=== PATIENT | female | born 2000 | race Caucasian/White ===

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

== ENCOUNTER 2020-01-12 20:41 | Emergency (ER) | payer OTHER, SELFPAY ==
[2020-01-12 20:49] VITALS: BP 122/70; PULSE 87; RESP 19; TEMP 36.6; O2SAT 99; BMI 30.6
--- NOTE | 2020-01-12 21:04 | HMH.EDUTC ---
[facility] [place]ression: Encounter to obtain excuse from work Disposition: Home, Self-Care Condition on Discharge: Good Additional Instructions: Make sure to eat prior to going to work *Make sure to wear comfortable clothing and dress appropriate for the weather Return if needed Straight to ER if any life threatening symptoms Referrals: Provider,Referral, MD [Primary Care Provider] - As needed Forms: Work/School Release Time of Disposition: 21:06 Medical Decision Making - Anderson Inquiry Pt receiving controlled substance: No Anderson was queried for this patient: No Vital Signs: 01/12/20 20:49 Temperature 97.8 F Temperature Source Oral Pulse Rate [Right Brachial] 87 Respiratory Rate 19 Blood Pressure [Right Arm] 122/70 Blood Pressure Mean [Right Arm] 87 Blood Pressure Source [Right Arm] Manual Cuff/ Doppler Blood Pressure Position [Right Arm] Sitting 02 Sat by Pulse Oximetry 99 Oxygen Delivery Method Room Air [facility] [place] - General Stated complaint: need release for work Time Seen by Provider: 01/12/20 21:04 Mode of Arrival: Ambulatory Source of Information: Patient Limitations: No Limitations Description of Symptoms (Recalled from Triage Doc. by RN): PT advises she was at work and got hot with her mask on and hadn't ate anything. Advises she needed to be seen before she could go back to work HEENT Symptoms (Recalled from RN notes): No Resp Symptoms (Recalled from RN notes): No Skin Symptoms (Recalled from RN notes): No MS Symptoms (Recalled from RN notes): No Functional Status (Recalled from RN notes): na - History of Present Illness Provider Complaint: Patient states that she was at work the other night and didnt eat prior to going in State that she was having to wear a mask and she got hot while working and felt flush and had to sit down States that work sent her home and after she eat she felt fine States that she tried to go back to work yesterday and they told her she had to be seen by provider prior to returning to work Patient denies any complaints and states that she feels fine - Related Data Previous Rx's Medication Instructions Recorded predniSONE [Deltasone 10mg tablet] 10 mg PO BID 3 Days #6 tab 07/17/19 Amoxicillin [Amoxicillin 500mg Tab] 500 mg PO TID 10 Days #30 tab 07/18/19 Allergies Allergy/AdvReac Type Severity Reaction Status Date / Time venom-honey bee Allergy Verified 12/28/18 13:41 Bee Venom Allergy Unknown Uncoded 12/28/18 13:41 - Worker's Comp Is this a Worker's Comp case?: No [facility] History - Hepatitis A Screen Drug use history?: No High risk sexual behaviors?: No History of sexually transmitted infection?: No Currently employed?: No Childcare worker?: No Do you have indoor plumbing?: Yes Do you have electricity?: Yes Attestation statement:: This patient has been screened for Hepatitis A risk factors. I have reviewed the patient's past medical history: Yes Medical History: Denies:: Cancer, Diabetes Mellitus Type 1, Diabetes Mellitus Type 2, Hypertension, MRSA Other Surgeries: Yes: No Previous Surgery, Other Amputation: No Fractures: No - Social History Smoking Status: Never smoker Alcohol Intake: never Substance Use Type: denies use Occupational Status: student Family Hx:: Coronary Artery Disease, Hypertension, Diabetes, Stroke ROS Obtained: Yes All systems reviewed & no additional complaints, Yes Systems reviewed as appropriate & no additional complaints - Constitutional Constitutional: Reports system reviewed and no additional complaints, except as docu - Eyes Eyes: Reports system reviewed and no additional complaints, except as docu - ENT Ears, Nose, Mouth, and Throat: Reports system reviewed and no additional complaints, except as docu - Cardiovascular Cardiovascular: Reports system reviewed and no additional complaints, except as docu - Respiratory Respiratory: Yes system reviewed and no additional complaints, except as d
[2020-01-12 21:07] VITALS: BP 122/70; PULSE 78; RESP 16; TEMP 36.5; O2SAT 98
== END 2020-01-12 21:09 | disposition home or self-care (01) ==
PROVIDERS: Emergency Provider Nurse Practitioner
DX: Z02.89 Encounter for other administrative examinations (principal)
CPT/HCPCS: 99201

== ENCOUNTER 2020-09-14 09:17 | Emergency (ER) | payer OTHER, SELFPAY ==
[2020-09-14 10:15] VITALS: BP 110/67; PULSE 101; RESP 20; TEMP 36.7; O2SAT 99; BMI 29.0
--- NOTE | 2020-09-14 10:17 | HMH.EDUTC ---
[facility] [place] Clinical Impression: Gastroenteritis, Viral syndrome Disposition: Home, Self-Care Condition on Discharge: Good Instructions: Viral Gastroenteritis, DI for Viral Gastroenteritis -- Adult Additional Instructions: Drink plenty of fluids. Take tylenol or ibuprofen for pain or fever. Take the medications as directed. Follow up with your regular doctor. GO TO THE ER FOR ANY WORSENING SYMPTOMS Prescriptions: Ondansetron [Zofran 4mg ODT] 4 mg PO Q8HP PRN #12 tab.rapdis PRN Reason: Nausea Transmission Status: Received by [facility] #[id number] Referrals: PCP,No [Primary Care Provider] - Time of Disposition: 10:48 Medical Decision Making - Medical Records Medical records reviewed: No: I reviewed the patient's medical records. - Anderson Inquiry Pt receiving controlled substance: No Vital Signs: 09/14/20 10:15 09/14/20 10:44 Temperature 98.0 F 98.0 F Temperature Source Oral Pulse Rate 101 H Pulse Rate [Right Brachial] 101 H Respiratory Rate 20 20 Blood Pressure 110/67 Blood Pressure [Right Arm] 110/67 Blood Pressure Mean [Right Arm] 81 Blood Pressure Source [Right Arm] Automatic Cuff Blood Pressure Position [Right Arm] Sitting 02 Sat by Pulse Oximetry 99 Oxygen Delivery Method Room Air Orders (Tests/Meds): ORDERS Category Date Time Status Covid-19 Nasal PCR ([facility]) Routine Lab 09/14/20 09:40 Received [facility] [place] HPI - General Stated complaint: vomiting, nausea Time Seen by Provider: 09/14/20 10:17 - History of Present Illness Provider Complaint: She states that since last night she has had n/v/d. She has vomited x1. She denies any abdominal pain. - Related Data Previous Rx's Medication Instructions Recorded predniSONE [Deltasone 10mg tablet] 10 mg PO BID 3 Days #6 tab 07/17/19 Amoxicillin [Amoxicillin 500mg Tab] 500 mg PO TID 10 Days #30 tab 07/18/19 Ondansetron [Zofran 4mg ODT] 4 mg PO Q8HP PRN #12 tab.rapdis 09/14/20 Allergies Allergy/AdvReac Type Severity Reaction Status Date / Time venom-honey bee Allergy Verified 12/28/18 13:41 Bee Venom Allergy Unknown Uncoded 12/28/18 13:41 [facility] History - Hepatitis A Screen Attestation statement:: This patient has been screened for Hepatitis A risk factors. I have reviewed the patient's past medical history: Yes Medical History: Denies:: Cancer, Diabetes Mellitus Type 1, Diabetes Mellitus Type 2, Hypertension, MRSA Other Surgeries: Yes: No Previous Surgery, Other Amputation: No Fractures: No - Social History Smoking Status: Never smoker Alcohol Intake: never Substance Use Type: denies use Occupational Status: student Family Hx:: Coronary Artery Disease, Hypertension, Diabetes, Stroke ROS Obtained: Yes All systems reviewed & no additional complaints - Constitutional Constitutional: Reports system reviewed and no additional complaints, except as docu - Eyes Eyes: Reports system reviewed and no additional complaints, except as docu - ENT Ears, Nose, Mouth, and Throat: Reports system reviewed and no additional complaints, except as docu - Cardiovascular Cardiovascular: Reports system reviewed and no additional complaints, except as docu - Respiratory Respiratory: Yes system reviewed and no additional complaints, except as docu - Gastrointestinal Gastrointestingal: Reports: system reviewed and no additional complaints, except as docu Physical Exam - General General appearance: alert, in no apparent distress - Head Head exam: atraumatic, normocephalic, normal inspection - Eye Eye exam: Present: normal appearance, PERRL, EOMI - ENT ENT exam: Present: normal exam, normal oropharynx, mucous membranes moist, TM's normal bilaterally, normal external ear exam - Neck Neck exam: Present: normal inspection, full ROM, trachea midline. Absent: meningismus, lymphadenopathy - Chest Chest inspection: Present: normal inspection, symmetric chest wall rise. Absen
[2020-09-14 10:44] VITALS: BP 110/67; PULSE 101; RESP 20; TEMP 36.7; O2SAT 99
[2020-09-14 19:41] LABS: UTC Influenza A Antigen Negative (Negative)
[2020-09-14 19:42] LABS: UTC Influenza B Antigen Negative (Negative)
== END 2020-09-14 10:45 | disposition home or self-care (01) ==
PROVIDERS: Emergency Provider Nurse Practitioner Family
DX: K52.9 Noninfective gastroenteritis and colitis, unspecified (principal); Z20.822 Contact with and (suspected) exposure to COVID-19
CPT/HCPCS: 87804; 99202; G0463; U0003

== ENCOUNTER 2020-12-22 01:55 | Emergency (ER) | payer OTHER, SELFPAY ==
[2020-12-22 02:08] VITALS: BP 123/60; PULSE 75; RESP 17; TEMP 36.4; O2SAT 100; BMI 28.3
--- NOTE | 2020-12-22 02:16 | ECG_ITS ---
APPROVED REPORT Exam: Resting ECG HR:68 bpm ECG Measurements Heart Rate [address] 126 P 40 QRSd 82 QRS 70 QT 404 T 59 QTc 429 Conclusion Normal sinus rhythm with sinus arrhythmia Normal ECG Electronically signed by : Raza Arias, 12/22/2020 07:40:37
--- NOTE | 2020-12-22 02:16 | HMH.EDGENADL ---
ED Disposition Clinical Impression: GERD (gastroesophageal reflux disease) Qualifiers: Esophagitis presence: without esophagitis Qualified Code(s): K21.9 - Gastro-esophageal reflux disease without esophagitis Disposition: Home, Self-Care Condition on Discharge: Fair Additional Instructions: Please take medications as prescribed Please decrease intake of acidic and citrus foods Please follow-up with your PCP for further management Prescriptions: Omeprazole [Omeprazole 40mg Capsule] 40 mg PO DAILY 14 Days #14 cap Prescription Printed Referrals: Raza Vo MD [Primary Care Provider] - - Critical Care Critical Care Time: No Attestation: On , the high probability of a clinically significant, sudden or life threatening deterioration of the following system(s) required my full and direct attention, intervention and personal management. The time I documented below is in addition to time spent performing reported procedures but includes the following listed in this critical care notation. Medical Decision Making - Medical Records Medical records reviewed: Yes: I reviewed the patient's medical records. - Anderson Inquiry Pt receiving controlled substance: No Vital Signs: 12/22/20 02:08 Temperature 97.5 F L Temperature Source Oral Pulse Rate [Right Brachial] 75 Respiratory Rate 17 Blood Pressure [Right Arm] 123/60 Blood Pressure Mean [Right Arm] 81 Blood Pressure Source [Right Arm] Automatic Cuff Blood Pressure Position [Right Arm] Sitting 02 Sat by Pulse Oximetry 100 Oxygen Delivery Method Room Air Orders (Tests/Meds): ED MEDICATIONS Discontinued Medications Generic Name Dose Route Start Last Admin Trade Name Freq PRN Reason Stop Dose Admin Belladonna Alkaloids 60 ml 12/22/20 02:15 12/22/20 02:38 Gi Cocktail 60ml Udc PO 12/22/20 02:16 60 ml ONCE ONE Administration Ondansetron HCl 4 mg 12/22/20 02:24 12/22/20 02:38 Ondansetron 4mg Odt SL 12/22/20 02:25 4 mg ONCE ONE Administration ORDERS Category Date Time Status Urine , HCG Qual. Stat Lab 12/22/20 02:15 Ordered EKG Request [ECG Request by /Cassidy] Stat Y 12/22/20 02:16 Ordered - ECG Data Tracing #1 ECG initial impression date: 12/22/20 ECG initial impression time: 02:30 ECG normal with no acute: arrhythmias, ischemia, conduction abnormalities, chamber hypertrophy Normal Sinus Rhythm: Yes Medical Decision Narrative: Upon presentation, patient is hemodynamically stable and nontoxic-appearing. Differential diagnosis includes but is not limited to GERD, gastroenteritis, esophageal spasm. Patient symptoms include retrosternal chest pain that are worse at night and with lying flat are consistent with GERD. Patient was given a GI cocktail for symptom management. However given presentation with chest pain and recent diagnosis of MVP, EKG was obtained. I reviewed EKG and did not find any signs of ischemia. Additionally, Urine test was obtained upon reassessment, patient states that she feels better. She was discharged in stable condition. Patient agreeable to plan. General Adult HPI - General Chief complaint: PAIN Stated complaint: difficulty breathing,chest pressure,COY Time Seen by Provider: 12/22/20 02:10 Mode of Arrival: Family Vehicle Limitations: No Limitations Description of Symptoms (Recalled from ER Triage Doc. by RN): pt complains of intermittent chest pain that she isn't she if is related to her recent mitral valve prolapse diagnosis or if its her vaping or marijuana use, but is accompanied by decr in appetite, nausea and hot flashes. is sexually active with LMP 2 weeks [employer]. afebrile. has a headache. slight soa with act of speaking, but no fluctuation in v/s. - History of Present Illness HPI narrative: Patient is a 20-year-old female presenting with hours of retrosternal chest pain that radiates down into her abdomen as well as shortness of breath. Patient states that she
[2020-12-22 02:57] VITALS: BP 112/75; PULSE 73; RESP 18; TEMP 36.9; O2SAT 98
== END 2020-12-22 02:59 | disposition home or self-care (01) ==
PROVIDERS: Emergency Provider Emergency Medicine; PCP Family Medicine
DX: K21.9 Gastro-esophageal reflux disease without esophagitis (principal); R07.9 Chest pain, unspecified; I35.8 Other nonrheumatic aortic valve disorders
CPT/HCPCS: 93005; 99281

== ENCOUNTER 2020-12-23 10:58 | Emergency (ER) | payer OTHER, SELFPAY ==
--- NOTE | 2020-12-23 10:45 | ECG_ITS ---
APPROVED REPORT Exam: Resting ECG HR:57 bpm ECG Measurements Heart Rate 57 AXES MI 114 P 7 QRSd 82 QRS 78 QT 414 T 70 QTc 402 Conclusion Sinus bradycardia Early repolarization Otherwise normal ECG Electronically signed by : Raza Arias, 12/26/2020 14:00:30
[2020-12-23 10:58] VITALS: BP 117/55; PULSE 58; RESP 18; TEMP 36.8; O2SAT 98; BMI 28.3
--- NOTE | 2020-12-23 11:04 | HMH.EDGENADL ---
ED Disposition Clinical Impression: Atypical chest pain, Anxiety Disposition: Home, Self-Care Condition on Discharge: Good Referrals: Raza Vo MD [Primary Care Provider] - 3 days Time of Disposition: 12:17 - Critical Care Critical Care Time: No Attestation: On 12/23/20, the high probability of a clinically significant, sudden or life threatening deterioration of the following system(s) required my full and direct attention, intervention and personal management. The time I documented below is in addition to time spent performing reported procedures but includes the following listed in this critical care notation. Medical Decision Making - Medical Records Medical records reviewed: Yes: I reviewed the patient's medical records. - Anderson Inquiry Pt receiving controlled substance: No Vital Signs: 12/23/20 10:58 Temperature 98.3 F Temperature Source Oral Pulse Rate [Right] 58 L Respiratory Rate 18 Blood Pressure [Right Arm] 117/55 L Blood Pressure Mean [Right Arm] 75 02 Sat by Pulse Oximetry 98 - Lab Data Lab results reviewed: Yes: I reviewed the patient's lab results. Lab Results 12/23/20 11:03: Sodium 139, Potassium 3.6, Chloride 107, Carbon Dioxide 23, Anion Gap 12.6, BUN 10, Creatinine 0.60, Estimated GFR 127, Est GFR ( Amer) 154, Glucose 99, Calcium 9.7, Troponin I < 0.01 Result diagrams: 12/23/20 11:03 Orders (Tests/Meds): ED MEDICATIONS Discontinued Medications Generic Name Dose Route Start Last Admin Trade Name Freq PRN Reason Stop Dose Admin Ondansetron HCl 4 mg 12/23/20 11:48 Ondansetron 4mg/2ml Vial IV 12/23/20 11:49 ONCE ONE ORDERS Category Date Time Status CXR --portable [XR chest portable] Stat Exams 12/23/20 11:06 Taken - Radiology Data #1 Image(s): Chest Image Reviewed: Yes I reviewed the patient's radiology image Preliminary Findings: Normal/NAD - ECG Data Tracing #1 57 bpm, sinus bradycardia, no ST elevation or depression, no ectopy, normal intervals. ECG initial impression date: 12/23/20 ECG initial impression time: 10:50 Medical Decision Narrative: 20yo F reevaluated for chest pain. Patient in no acute distress on initial evaluation. Repeat laboratory studies, EKG, chest x-ray ordered. Patient remains in no acute distress. Labs are again benign. EKG reviewed as above. Discussed anxiety with the patient. She agrees to follow-up with her PCP to discuss starting medications. General Adult HPI - General Stated complaint: CHEST PAIN Time Seen by Provider: 12/23/20 11:04 Mode of Arrival: Ambulatory Source of Information: Patient - History of Present Illness HPI narrative: 20yo F evaluated for chest pain. Patient was recently evaluated in this emergency department for the same complaint. She denies any new symptoms. She does reports that her symptoms continue to bother her. Chest pain does not seem tied to exertion. She denies shortness of breath. She also continues to complain of hot flashes. Patient reports she has been told she has anxiety and was offered medications in the past but declined them secondary to a family history of addiction. Patient denies any radiation of pain, nausea/vomiting, diaphoresis. - Related Data Previous Rx's Medication Instructions Recorded Omeprazole [Omeprazole 40mg 40 mg PO DAILY 14 Days #14 cap 12/22/20 Capsule] Allergies Allergy/AdvReac Type Severity Reaction Status Date / Time venom-honey bee Allergy Verified 12/28/18 13:41 Bee Venom Allergy Unknown Uncoded 12/28/18 13:41 [facility] History - Hepatitis A Screen Drug use history?: No Attestation statement:: This patient has been screened for Hepatitis A risk factors. I have reviewed the patient's past medical history: Yes Medical History: Reports:: Anxiety, Valvular Heart Disease Denies:: Cancer, Diabetes Mellitus Type 1, Diabetes Mellitus Type 2, Hypertension, MRSA Other Surgeries: Yes: No P
--- NOTE | 2020-12-23 11:06 | XR_ITS ---
PROCEDURE: XR CHEST PORTABLE CLINICAL HISTORY: cp Chest pain COMPARISON: CR CXR CHEST(2 VIEWS-NOT PORTABLE) from 07/17/2014 CR CXR2V XR chest 2V from 05/24/2018 CR XR CHEST 2V from 06/14/2019 FINDINGS: The cardiomediastinal silhouette and pulmonary vascularity are within normal limits. The lungs are clear without infiltrates, suspicious nodules, or pleural effusions. No acute bony abnormalities. IMPRESSION: No acute findings. Dictated by: Jarvis Wiggins MD 12/23/2020 12:23 Jarvis Wiggins MD in [place] 12/23/2020 12:23
[2020-12-23 11:28] LABS: Chloride 107 mmol/L (98-107)
[2020-12-23 11:29] LABS: Potassium 3.6 mmoL/L (3.5-5.1); Sodium 139 mmol/L (136-145)
[2020-12-23 11:31] LABS: Blood Urea Nitrogen 10 mg/dl (7-17); Estimated Glomerular Filt Rate 127 ml/min (>60); GFR (African American) 154 ML/MIN (>60)
[2020-12-23 11:32] LABS: Anion Gap 12.6 mEq/L (5-15); Calcium 9.7 mg/dl (8.4-10.2); Carbon Dioxide 23 mmol/L (22.0-30.0); Glucose 99 mg/dl (74-100)
[2020-12-23 11:45] LABS: Troponin I < 0.01 ng/ml (0.00-0.034)
[2020-12-23 12:00] VITALS: BP 145/102; PULSE 60; O2SAT 98
[2020-12-23 12:11] VITALS: BP 135/84; PULSE 72; O2SAT 100
[2020-12-23 12:19] VITALS: BP 135/84; PULSE 58; RESP 20; TEMP 36.8; O2SAT 99
== END 2020-12-23 12:20 | disposition home or self-care (01) ==
PROVIDERS: Emergency Provider Family Medicine; PCP Family Medicine
DX: R07.89 Other chest pain (principal); F41.9 Anxiety disorder, unspecified
CPT/HCPCS: 71045; 80048; 84484; 93005; 96374; 99282; J2405

== ENCOUNTER 2021-04-20 15:43 | Emergency (ER) | payer OTHER, SELFPAY ==
[2021-04-20 16:05] VITALS: BP 115/67; PULSE 80; RESP 19; TEMP 37; O2SAT 97; BMI 27.4
--- NOTE | 2021-04-20 16:28 | HMH.EDUTC ---
[facility] [place] Clinical Impression: Painful menstrual periods Disposition: Home, Self-Care Condition on Discharge: Good Instructions: Painful Menstrual Periods Additional Instructions: follow up with city controller if symptoms worsen return or be seen in ed Referrals: Raza Arias MD [Primary Care Provider] - Forms: Work/School Release Time of Disposition: 16:36 Medical Decision Making - Anderson Inquiry Pt receiving controlled substance: No Vital Signs: 04/20/21 16:05 04/20/21 16:32 Temperature 98.6 F 98.6 F Temperature Source Oral Pulse Rate 80 Pulse Rate [Right Brachial] 80 Respiratory Rate 19 19 Blood Pressure 115/67 Blood Pressure [Right Arm] 115/67 Blood Pressure Mean [Right Arm] 83 Blood Pressure Source [Right Arm] Automatic Cuff Blood Pressure Position [Right Arm] Sitting 02 Sat by Pulse Oximetry 97 Oxygen Delivery Method Room Air [facility] [place] HPI - General Chief complaint: Urgent [facility] Stated complaint: period cramps/ doctor's note Time Seen by Provider: 04/20/21 16:30 Mode of Arrival: Ambulatory Source of Information: Patient Limitations: No Limitations Description of Symptoms (Recalled from Triage Doc. by RN): PATIENT MISSED WORK D/T PERIOD CRAMPS AND IS NEEDING A WORK NOTE HEENT Symptoms (Recalled from RN notes): No Resp Symptoms (Recalled from RN notes): No Skin Symptoms (Recalled from RN notes): No MS Symptoms (Recalled from RN notes): No Functional Status (Recalled from RN notes): WNL - Related Data Previous Rx's Medication Instructions Recorded Omeprazole [Omeprazole 40mg 40 mg PO DAILY 14 Days #14 cap 12/22/20 Capsule] Allergies Allergy/AdvReac Type Severity Reaction Status Date / Time venom-honey bee Allergy Verified 12/28/18 13:41 - Worker's Comp Is this a Worker's Comp case?: No [facility] History - Hepatitis A Screen Drug use history?: No High risk sexual behaviors?: No History of sexually transmitted infection?: No Currently employed?: No Childcare worker?: No Do you have indoor plumbing?: Yes Do you have electricity?: Yes Attestation statement:: This patient has been screened for Hepatitis A risk factors. I have reviewed the patient's past medical history: Yes Medical History: Reports:: Anxiety, Valvular Heart Disease Denies:: Cancer, Diabetes Mellitus Type 1, Diabetes Mellitus Type 2, Hypertension, MRSA Other Surgeries: Yes: No Previous Surgery, Other Amputation: No Fractures: No - Social History Smoking Status: Never smoker Alcohol Intake: never Substance Use Type: denies use Occupational Status: other - Psychiatric History Pschychiatric History:: Reports:: Anxiety Family Hx:: Coronary Artery Disease, Hypertension, Diabetes, Stroke ROS Obtained: Yes Systems reviewed as appropriate & no additional complaints - Constitutional Constitutional: Reports system reviewed and no additional complaints, except as docu, Denies fever(s) - Eyes Eyes: Reports system reviewed and no additional complaints, except as docu, Denies blurry vision - ENT Ears, Nose, Mouth, and Throat: Reports system reviewed and no additional complaints, except as docu, Denies sore throat - Cardiovascular Cardiovascular: Reports system reviewed and no additional complaints, except as docu, Denies chest pain - Respiratory Respiratory: Reports system reviewed and no additional complaints, except as docu, Denies change in phlegm color - Gastrointestinal Gastrointestingal: Reports: system reviewed and no additional complaints, except as docu, abdominal pain - Genitourinary Female Genitourinary: Reports system reviewed and no additional complaints, except as docu, Reports abnormal menses, Reports painful periods - Musculoskeletal Musculoskeletal: Reports system reviewed and no additional complaints, except as docu, Denies joint pain - Integumentary/Breasts Skin/Breast: Reports system reviewed and no additional complaints, except as docu, Denies itching
[2021-04-20 16:32] VITALS: BP 115/67; PULSE 80; RESP 19; TEMP 37; O2SAT 97
[2021-04-20 16:36] LABS: UTC Pregnancy Test, Urine Negative (Negative)
== END 2021-04-20 16:39 | disposition home or self-care (01) ==
PROVIDERS: Emergency Provider Nurse Practitioner Family; PCP Internal Medicine Adolescent Medicine
DX: N94.6 Dysmenorrhea, unspecified (principal); F41.9 Anxiety disorder, unspecified
CPT/HCPCS: 81025; 99202; G0463

== ENCOUNTER → 2021-05-27 17:37 | Outpatient (CLI) | payer OTHER, SELFPAY ==
[2021-05-30 06:10] LABS: Neisseria gonorrhoeae, NAA Negative (Negative)
== END ==
PROVIDERS: Visit Provider Nurse Practitioner Obstetrics & Gynecology
DX: Z72.51 High risk heterosexual behavior (principal)
CPT/HCPCS: 87491; 87591

== ENCOUNTER 2021-06-12 15:16 | Emergency (ER) | payer OTHER, SELFPAY ==
[2021-06-12 15:25] VITALS: BP 168/90; PULSE 79; RESP 16; TEMP 36.6; O2SAT 99; BMI 27.4
[2021-06-12 15:30] VITALS: BP 120/72; PULSE 81; RESP 20; TEMP 36.7; O2SAT 99; BMI 27.4
--- NOTE | 2021-06-12 15:38 | HMH.EDUTC ---
[facility] [place] Clinical Impression: Allergic reaction Qualifiers: Encounter type: initial encounter Qualified Code(s): T78.40XA - Allergy, unspecified, initial encounter Disposition: Home, Self-Care Condition on Discharge: Good Instructions: DI for General Allergic Reactions Additional Instructions: Avoid contact with the offending substance, if you can figure out what it was. Don't start the oral steroids until tomorrow. Take the benedryl (dyphenhydramine) every 6 hours as needed for itching, but take it regularly for the next 48 hours or so to make sure this reaction doesn't start back up. Follow up with your regular doctor. GO TO THE ER FOR ANY WORSENING SYMPTOMS OR CONCERNS Prescriptions: diphenhydrAMINE HCL [Diphenhydramine HCl] 25 mg PO Q6HP PRN #30 cap PRN Reason: Itching Transmission Status: Received by [employer] [facility] #[id number] methylPREDNISolone [Medrol] 4 mg PO DIRECTED 6 Days #21 packet Transmission Status: Received by [employer] [facility] # Referrals: Raza Vo MD [Primary Care Provider] - Forms: Work/School Release Time of Disposition: 16:21 Medical Decision Making - Medical Records Medical records reviewed: No: I reviewed the patient's medical records. - Anderson Inquiry Pt receiving controlled substance: No Vital Signs: 06/12/21 15:25 06/12/21 15:30 06/12/21 15:58 Temperature 98 F 98.0 F 98.0 F Temperature Source Oral Oral Pulse Rate 81 Pulse Rate [Left] 79 81 Respiratory Rate 16 20 20 Blood Pressure 120/72 Blood Pressure [Right Arm] 168/90 H 120/72 Blood Pressure Mean [Right Arm] 116 88 Blood Pressure Source [Right Arm] Automatic Cuff Blood Pressure Position [Right Arm] Sitting Sitting 02 Sat by Pulse Oximetry 99 99 Oxygen Delivery Method Room Air Room Air Orders (Tests/Meds): ED MEDICATIONS Discontinued Medications Generic Name Dose Route Start Last Admin Trade Name Freq PRN Reason Stop Dose Admin Diphenhydramine HCl 25 mg 06/12/21 15:39 06/12/21 15:50 Diphenhydramine 50mg/Ml Vial IM 06/12/21 15:40 25 mg ONCE ONE Administration Methylprednisolone Sodium Succinate 125 mg 06/12/21 15:39 06/12/21 15:50 Methylprednisolone Sod Succ 125mg Vial IM 06/12/21 15:40 125 mg ONCE ONE Administration [facility] [place] - General Stated complaint: possible allergic reaction Time Seen by Provider: 06/12/21 15:38 Mode of Arrival: Ambulatory Source of Information: Patient Limitations: No Limitations Description of Symptoms (Recalled from Triage Doc. by RN): Pt states she was in contact with poison dwayne last night. Pt states when she woke up today she noticed a rash on her hands, bilateral arms, and bilateral legs. pt states the rash is not painful but itches. Pt denies sob or chest pain. - History of Present Illness Provider Complaint: She states that for the past 2 hours she has been having generalized itching, hives on her arms and legs. She denies being exposed to anything out of the ordinary. She states that this started after she woke up at home a couple of hours ago. - Related Data Home Medications Medication Instructions Recorded Confirmed fluoxetine 10 mg capsule 10 mg PO cap 05/27/21 05/27/21 Previous Rx's Medication Instructions Recorded Omeprazole [Omeprazole 40mg 40 mg PO DAILY 14 Days #14 cap 12/22/20 Capsule] norgestimate 0.25 mg-ethinyl 1 tab PO DAILY #84 tab 05/27/21 estradiol 35 mcg tablet diphenhydrAMINE HCL 25 mg PO Q6HP PRN #30 cap 06/12/21 [Diphenhydramine HCl] methylPREDNISolone [Medrol] 4 mg PO DIRECTED 6 Days #21 06/12/21 packet Allergies Allergy/AdvReac Type Severity Reaction Status Date / Time venom-honey bee Allergy Verified 05/27/21 10:32 [facility] History - Hepatitis A Screen Attestation statement:: This patient has been screened for Hepatitis A risk factors. I have reviewed the patient's past medical history: Yes Medical History: Reports:: Anx
[2021-06-12 15:58] VITALS: BP 120/72; PULSE 81; RESP 20; TEMP 36.7; O2SAT 99
== END 2021-06-12 16:25 | disposition home or self-care (01) ==
LOC: ER 15:27 → UTC 15:27
PROVIDERS: Emergency Provider Nurse Practitioner Family; PCP Family Medicine
DX: L23.7 Allergic contact dermatitis due to plants, except food (principal)
CPT/HCPCS: 96372; 99202; G0463

== ENCOUNTER 2021-08-27 18:04 | Emergency (ER) | payer OTHER, SELFPAY ==
[2021-08-27 19:30] VITALS: BP 107/72; PULSE 76; RESP 18; TEMP 36.6; O2SAT 100; BMI 27.8
--- NOTE | 2021-08-27 20:08 | HMH.EDUTC ---
[facility] – [place] Disposition Clinical Impression: Sinusitis Qualifiers: Sinusitis location: unspecified location Chronicity: unspecified Qualified Code(s): J32.9 - Chronic sinusitis, unspecified Disposition: Home, Self-Care Condition on Discharge: Good Instructions: Sinusitis, DI for Sinusitis, Methylprednisolone, Amoxicillin and Clavulanic Acid Additional Instructions: *Monitor Temp, Over the counter Motrin or Tylenol as directed/as needed Tylenol every 4 hours and Motrin every 6 hours (as long as your family doctor has told you that you can take it) for fever or pain. and straight to ER if unable to lower temp less than 101.0 after medication given *Warm salt water gargles may help to soothe the throat *Throat Lozenges *Warm fluids like tea with honey may help to soothe the throat *Sleep elevated *Humidifier/Vaporizer Take medication as prescribed Return if needed Follow up IMMEDIATELY for new or worsening symptoms or no Noticeable improvement over the next 48-72 hours. 911 for difficulty breathing or swallowing Prescriptions: Amoxicillin/Potassium Clav [Augmentin 875-125 Tablet] 1 tab PO Q12H 10 Days #20 tab Transmission Status: Pending to [facility] [employer] # methylPREDNISolone [Medrol 4mg tab] 4 mg PO DIRECTED #21 tab Transmission Status: Pending to [facility] [employer] # Referrals: Raza Vo MD [Primary Care Provider] - As needed Forms: Work/School Release Time of Disposition: 20:12 Medical Decision Making - Anderson Inquiry Pt receiving controlled substance: No Anderson was queried for this patient: No Vital Signs: 08/27/21 19:30 Temperature 97.8 F Temperature Source Oral Pulse Rate [Right Brachial] 76 Respiratory Rate 18 Blood Pressure [Right Arm] 107/72 L Blood Pressure Mean [Right Arm] 83 Blood Pressure Source [Right Arm] Automatic Cuff Blood Pressure Position [Right Arm] Sitting 02 Sat by Pulse Oximetry 100 Oxygen Delivery Method Room Air - Lab Data Lab results reviewed: Yes: I reviewed the patient's lab results. Lab Results 08/27/21 20:03: Tst Clinic Negative [facility] [place] HPI - General Stated complaint: SINUS Time Seen by Provider: 08/27/21 20:08 Mode of Arrival: Ambulatory Source of Information: Patient Limitations: No Limitations Description of Symptoms (Recalled from Triage Doc. by RN): PATIENT C/O SINUS PRESSURE/DRAINAGE, EAR ACHE, AND COUGH X 3 DAYS HEENT Symptoms (Recalled from RN notes): Yes Resp Symptoms (Recalled from RN notes): No Skin Symptoms (Recalled from RN notes): No MS Symptoms (Recalled from RN notes): No Functional Status (Recalled from RN notes): WNL - History of Present Illness Provider Complaint: Patient states that she has been having sinus congestion and pressure for over a week that has got worse over the last 2-3 days States that she is having pain in ears, pressure behind her eyes and feeling like her teeth even ache States that she feels like she did before when she had a sinus infection - Related Data Previous Rx's Medication Instructions Recorded Amoxicillin/Potassium Clav 1 tab PO Q12H 10 Days #20 tab 08/27/21 [Augmentin 875-125 Tablet] methylPREDNISolone [Medrol 4mg 4 mg PO DIRECTED #21 tab 08/27/21 tab] Allergies Allergy/AdvReac Type Severity Reaction Status Date / Time venom-honey bee Allergy Verified 05/27/21 10:32 - Worker's Comp Is this a Worker's Comp case?: No [facility] History - Hepatitis A Screen Drug use history?: No High risk sexual behaviors?: No History of sexually transmitted infection?: No Currently employed?: No Childcare worker?: No Do you have indoor plumbing?: Yes Do you have electricity?: Yes Attestation statement:: This patient has been screened for Hepatitis A risk factors. I have reviewed the patient's past medical history: Yes Medical History: Reports:: Anxiety, Valvular Heart Disease Denies:: Cancer, Diabetes Mellitus Type 1, Diabetes Mellitus Type 2, Hypertensio
[2021-08-27 20:10] VITALS: BP 107/72; PULSE 76; RESP 18; TEMP 36.6; O2SAT 100
[2021-08-27 20:10] LABS: UTC Pregnancy Test, Urine Negative (Negative)
== END 2021-08-27 20:14 | disposition home or self-care (01) ==
PROVIDERS: Emergency Provider Nurse Practitioner; PCP Family Medicine
DX: J32.9 Chronic sinusitis, unspecified (principal); F41.9 Anxiety disorder, unspecified
CPT/HCPCS: 81025; 99202; G0463

== ENCOUNTER 2021-10-08 09:26 | Emergency (ER) | payer OTHER, SELFPAY ==
[2021-10-08 09:30] VITALS: BP 132/83; PULSE 91; RESP 19; TEMP 36.6; O2SAT 98; BMI 24.5
[2021-10-08 10:02] LABS: UTC Pregnancy Test, Urine Negative (Negative)
[2021-10-08 10:04] LABS: Apearance,Urine Cloudy (Clear); Bilirubin,Urine 2+ (Negative); Blood, Urine Negative (Negative); Color,Urine Dark Yellow (Yellow); Glucose,Urine (UA) Negative (Negative); Ketones,Urine 1+ (Negative); Protein,Urine 1+ (Negative); UTC Leukocyte Esterase,Urine 1+ (Negative); Urobilinogen,Urine 2 EU/dl (0.2)
[2021-10-08 10:05] LABS: UTC Nitrate,Urine Negative (Negative)
--- NOTE | 2021-10-08 10:27 | HMH.EDUTC ---
[facility] – [place] Disposition Clinical Impression: Nausea UTI (urinary tract infection) Qualifiers: Urinary tract infection type: site unspecified Hematuria presence: without hematuria Qualified Code(s): N39.0 - Urinary tract infection, site not specified Disposition: Home, Self-Care Condition on Discharge: Good Instructions: Urinary Tract Infection, DI for Urinary Tract Infection (UTI), DI for Nausea -- Adult Additional Instructions: *Increase fluids. Water not Soda or Tea *Start antibiotic immediately and be sure to take as ordered for the FULL length of time although you should start to see improvement over the next 48 hours *Be SURE to follow up anytime for new or worsening symptoms with your family doctor. AND in 48 hours for urine culture results with your family doctor, if you do not have a doctor then you may call back to the [facility] for urine culture results and further treatment. We do recommend that you choose and establish care with a Primary Care Physician. AND follow up with them in 10-14 days to repeat UA to ensure infection is resolved and blood no longer present *Be sure to let your PCP know that we sent urine cultures from the [facility] so they can follow up to ensure that you area the on the correct antibiotic Call your doctor office and make appointment for 48 hours (2 days from today) to follow up and get the results of your urine culture and further treatment Follow up with your Family Doctor for repeat UA in a few days Straight to ER if any life threatening symptoms Prescriptions: Cefdinir [Omnicef 300mg Capsule] 300 mg PO BID 7 Days #14 cap Transmission Status: Received by [employer] #[id number] Ondansetron [Zofran 4mg ODT] 4 mg PO BIDP PRN #8 tab PRN Reason: Nausea Transmission Status: Received by [employer] #[id number] Referrals: Raza Vo MD [Primary Care Provider] - As needed Forms: Work/School Release Medical Decision Making - Anderson Inquiry Pt receiving controlled substance: No Anderson was queried for this patient: No Vital Signs: 10/08/21 09:30 10/08/21 11:13 Temperature 97.8 F 97.8 F Temperature Source Oral Pulse Rate 91 H Pulse Rate [Right Brachial] 91 H Respiratory Rate 19 19 Blood Pressure 132/83 Blood Pressure [Right Arm] 132/83 Blood Pressure Mean [Right Arm] 99 Blood Pressure Source [Right Arm] Automatic Cuff Blood Pressure Position [Right Arm] Sitting 02 Sat by Pulse Oximetry 98 Oxygen Delivery Method Room Air - Lab Data Lab results reviewed: Yes: I reviewed the patient's lab results. Lab Results 10/08/21 09:44: Urine Color Dark yellow, Urine Appearance Cloudy, Urine pH 6.0, Ur Specific [place] 1.030, Urine Protein 1+, Urine Glucose (UA) Negative, Urine Ketones 1+, Urine Blood Negative, Urine Nitrate Negative, Urine Bilirubin 2+ A, Urine Urobilinogen 2, Ur Leukocyte Esterase 1+ A 10/08/21 10:02: Tst Clinic Negative Orders (Tests/Meds): ED MEDICATIONS Discontinued Medications Generic Name Dose Route Start Last Admin Trade Name Freq PRN Reason Stop Dose Admin Sodium Chloride 500 ml 10/08/21 10:49 10/08/21 10:50 Sodium Chloride 0.9% 500ml Bag IV 10/08/21 10:50 500 ml ONCE ONE Administration ORDERS Category Date Time Status Covid-19 Nasal PCR ([facility]) Routine Lab 10/08/21 10:28 Received Medical Decision Narrative: Ordered IV fluids infusing patient states that she is already feeling better Reports feels much better after fluids recommended follow up with PCP in a couple days to repeat UA due to bilirubin in urine and further evaluation [facility] [place] HPI - General Stated complaint: nausea, vomiting, possible dehydration Time Seen by Provider: 10/08/21 10:27 Mode of Arrival: Ambulatory Source of Information: Patient Limitations: No Limitations Description of Symptoms (Recalled from Triage Doc. by RN): PATIENT C/O HOT FLASHES, FEELING LIGHT-HEADED, NAUSEA, AND INABILITY TO EAT/DRINK X 2 DAYS HEENT Symptoms (Recalled fr
[2021-10-08 11:13] VITALS: BP 132/83; PULSE 91; RESP 19; TEMP 36.6; O2SAT 98
== END 2021-10-08 11:45 | disposition home or self-care (01) ==
PROVIDERS: Emergency Provider Nurse Practitioner; PCP Family Medicine
DX: N30.00 Acute cystitis without hematuria (principal); U07.1 COVID-19
CPT/HCPCS: 81003; 81025; 96365; 99202; C9803; G0463; U0003; U0005

== ENCOUNTER 2022-07-04 13:58 | Emergency (ER) | payer OTHER, SELFPAY ==
--- NOTE | 2022-07-04 14:12 | EXP.UTC ---
Discharge Plan Disposition Patient Disposition: Home, Self-Care Condition: Good Prescriptions Prescriptions: New triamcinolone acetonide 0.1 % paste 1 applic dental BID 7 Days Qty: 5 0RF Rx Instructions: use after food and/or drink and/or oral hygiene No Action ondansetron 4 MG tablet,disintegrating 4 mg PO BIDP PRN (Reason: Nausea) Qty: 8 0RF cefdinir 300 MG capsule 300 mg PO BID 7 Days Qty: 14 0RF methylprednisolone 4 MG tablet 4 mg PO DIRECTED Qty: 21 0RF Rx Instructions: Take as directed on package instructions amoxicillin-pot clavulanate 1 EACH tablet 1 tab PO Q12H 10 Days Qty: 20 0RF Activity Restrictions/Add. Instructions Additional Instructions/Restrictions: Drink plenty of fluids. Take tylenol or ibuprofen for pain or fever. Take the medications as directed. Follow up with your regular doctor or dentist. GO TO THE ER FOR ANY WORSENING SYMPTOMS Clinical Impressions Clinical Impression: Aphthous ulcer Instructions Patient Instructions: Aphthous Ulcers, DI for Aphthous Ulcers (Canker Sores) Discharge ED Provider: Donovan Esteves [facility] General Stated complaint: dental pain Time Seen by Provider: 07/04/22 14:12 History of Present Illness Provider Complaint: She is here with complaints of having a sore on the inside on her lower lip. This has been present for the past 1 week. She denies any injury to the lip. She denies any other symptoms. She denies tooth pain. Related Data Previous Rx's Medication Instructions Recorded amoxicillin 875 mg-potassium 1 tab PO Q12H 10 days #20 tabs 08/27/21 clavulanate 125 mg tablet methylprednisolone 4 mg tablet 4 mg PO DIRECTED #21 tabs 08/27/21 cefdinir 300 mg capsule 300 mg PO BID 7 days #14 caps 10/08/21 ondansetron 4 mg disintegrating 4 mg PO BIDP PRN Nausea #8 tabs 10/08/21 tablet triamcinolone acetonide 0.1 % 1 applic dental BID 7 days #5 grams 07/04/22 dental paste Allergies Allergy/AdvReac Type Severity Reaction Status Date / Time venom-honey bee Allergy Verified 07/04/22 14:27 PFSH [facility] Social History Smoking Status: Unknown if ever smoked second hand exposure: No alcohol intake: never substance use type: marijuana current occupational status: other Travel in the last 8 weeks: None ROS Obtained: Yes All systems reviewed & no additional complaints except as documented Constitutional Constitutional: Denies chills and Denies fever(s) Eyes Eyes: Denies eye discharge ENT Ears, Nose, Mouth, and Throat: Denies dizziness, Denies otalgia, Reports mouth lesions and Denies sore throat Cardiovascular Cardiovascular: Denies chest pain Respiratory Respiratory: Denies shortness of breath, Denies chest congestion, Denies cough, Denies stridor and Denies wheezing Gastrointestinal Gastrointestingal: Denies nausea or vomiting Musculoskeletal Musculoskeletal: Reports system reviewed and no additional complaints, except as documented and Denies arthralgias Integumentary/Breasts Skin/Breast: Denies rash Neurologic Neurologic: Denies dizziness and Denies paresthesias Allergic/Immunologic Allergic/Immunologic: Denies wheezing Physical Exam General General appearance: alert and in no apparent distress Head Head exam: atraumatic, normocephalic and normal inspection Eye Eye exam: Present normal appearance, PERRL and EOMI ENT ENT exam: Present mucous membranes moist, TM's normal bilaterally and normal external ear exam Expanded ENT Exam Nasal speculum exam: Bilateral: normal Mouth exam: Present normal external inspection; Absent drooling Teeth exam: Present other (there is a 4 mm whitish lesion on the inside of her lower lip, no drainage, no redness around it noted. ); Absent dental caries, fractured tooth #, dental tenderness # or gingival swelling Neck Neck exam: Present normal inspection, full ROM and trachea midline; Absent men
[2022-07-04 14:24] VITALS: BP 111/65; PULSE 68; RESP 19; TEMP 36.6; O2SAT 98; BMI 27.4
[2022-07-04 15:20] VITALS: BP 111/65; PULSE 68; RESP 19; TEMP 36.6
== END 2022-07-04 15:20 | disposition home or self-care (01) ==
PROVIDERS: Emergency Provider Nurse Practitioner Family
DX: K12.0 Recurrent oral aphthae (principal); R11.0 Nausea; Z79.52 Long term (current) use of systemic steroids; Z79.899 Other long term (current) drug therapy; Z91.030 Bee allergy status
CPT/HCPCS: 99213; G0463